=== PATIENT | female | born 1960 | race Asian ===

== ENCOUNTER 2016-07-09 06:12 | Day surgery (SDC) | payer BC ==
[2016-06-29 10:32] LABS: HEMATOCRIT 40.3 % (36.0-48.0); HEMOGLOBIN 13.2 g/dL (12.0-16.0)
[2016-06-29 10:42] LABS: BUN (BLOOD UREA NITROGEN) 13 MG/DL (6-23); CALCIUM, SERUM 9.3 MG/DL (8.5-10.4); CHLORIDE, SERUM 107 MMOL/L (96-112); CO2 (CARBON DIOXIDE) 30 MMOL/L (24-34); CREATININE 0.67 MG/DL (0.55-1.02); GFR AFRICAN AMERICAN 115 ML/MIN (>=60); GFR NON AFRICAN AMERICAN 100 ML/MIN (>=60); GLUCOSE, SERUM 98 MG/DL (60-99); POTASSIUM, SERUM 4.2 MMOL/L (3.5-5.3); SODIUM, SERUM 144 MMOL/L (135-148)
--- NOTE | ~2016-07-09 | OP ---
Record Of Operation [facility] [address] [place]. [address] NAME: MERLY MARTINEZ : 64 STATUS : [facility]#: [id number] AGE: 56 ADM/REG DATE : 07/09/16 MR#: [id number] REPORT SERV DATE: 07/12/16 DICTATED BY: SANDRA GEE DATE: 07/09/16 REPORT STATUS : Draft TRANSCRIBED BY: MONICO DATE: 07/09/16 DATE OF PROCEDURE: POSTOPERATIVE DIAGNOSIS: Right breast papillary lesion. POSTOPERATIVE DIAGNOSIS: Right breast papillary lesion. PROCEDURES: 1. Right breast excisional biopsy of 9 o'clock mass. 2. Intraoperative ultrasound for tumor mapping. INDICATION FOR THE PROCEDURE: Ms. Martinez is a healthy [place] female who is in her 50s. 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 On most recent imaging, that area has increased in size in suspicion, and there were two additional small nodules close by. Biopsy was recommended. The patient has refused the biopsy and would rather move forward with excision of the area entirely. She understands that the cystic areas in the breast throughout are not suspicious, but these solid lesions near the nipple are in fact somewhat suspicious. The plan today is for excision of all the solid masses at the 9 to 10 o'clock position, right breast. OPERATIVE FINDINGS: After appropriate consent was noted on the chart, the patient was taken to the operating room in supine position. She was placed under general anesthesia without any complications. The ultrasound was utilized to visualize the lesions in the breast tissue. They were located at the 9 to 10 o'clock position near the areolar edge and this was marked on the patient's skin. The patient's breast was prepped and draped in sterile fashion. An incision was made at the areolar edge. Sharp dissection was carried down to the breast parenchyma and flaps were created in all directions around. They now are somewhat vaguely palpable area. Dissection was carried generously around this area and marked with sutures. This was sent for permanent pathology. The wound was copiously irrigated with warm saline. Hemostasis was achieved. Local anesthetic infiltrated in the skin and soft tissues and the incision closed in two layers of Monocryl. Skin was cleansed and dried. Dermabond was overlaid. Burn fluff and a binder placed on the patient before awakening. All counts were correct at the end of the case. ESTIMATED BLOOD LOSS: 25 mL. COMPLICATIONS: None. SPECIMEN: Right breast 9 o'clock segment. The patient was awoken from anesthesia without complication and taken to the PACU in stable condition for recovery. /MERARIL Record Of Operation [facility] [address] [place] [address] NAME: MERLY MARTINEZ : 64 STATUS : [facility]#: [id number] AGE: 56 ADM/REG DATE : 07/09/16 MR#: [id number] REPORT SERV DATE: 07/12/16 DICTATED BY: SANDRA GEE DATE: 07/09/16 REPORT STATUS : Draft TRANSCRIBED BY: MONICO DATE: 07/09/16 Sandra Gee MD / [id number] CC: MD Katy Smith M.D. [facility] Tej Willis MD
[~2016-07-09 06:12] MED LIST: BEN25 PO; FISH-EPA1000 MG PO; RED YEAS1 PO; VITAMIN B-121000 MC1 SL; VITAMIN D1000 UNI1 PO
== END 2016-07-09 17:24 | disposition home or self-care (01) ==
LOC: SDC 06:12
PROVIDERS: Surgery Surgical Oncology
PROC: 0HBT0ZX Excision of Right Breast, Open Approach, Diagnostic (ICD-10-PCS; principal; 2016-07-09 07:45)
DX: D24.1 Benign neoplasm of right breast (principal); E11.9 Type 2 diabetes mellitus without complications; Z88.1 Allergy status to other antibiotic agents; J45.909 Unspecified asthma, uncomplicated; Z79.899 Other long term (current) drug therapy
CPT/HCPCS: 80048; 82962; 85014; 85018; 88307; 88341; 88342; 93005; A9270-GY; J0690; J2250; J2370; J2405; J3010